=== PATIENT | female | born 1985 | race African-American/Black ===

== ENCOUNTER 2017-08-06 16:34 | Emergency (ER) | payer MEDICAID ==
[~2017-08-06] VITALS: Ht 157.5 cm; Wt 93.0 kg
[2017-08-06] MEDS ORDERED: ATIVAN0.5 MG ORAL (17:16)
[2017-08-06] MEDS ORDERED: IBUPROFEN600 MG ORAL (17:16)
[2017-08-06 17:37] VITALS: BP 116/73
--- NOTE | 2017-08-06 22:33 | Emergency Room Report ---
History of Present Illness General Chief Complaint: Headache Source: Patient Present Illness HPI The patient is a 32-year-old female presenting for 3 days of headache and chest pain. She states that these symptoms have been continuous. Chest pain is an 8/ 10 dull ache to the left chest. Worse with movement. She denies any recent injury to the area or strenuous activity. She does admit to history of anxiety but is not taking any medications for it. She states that she has been feeling more anxious over the past week. She denies any other symptoms including shortness of breath, fever, chills, numbness or tingling Patient History Past Medical History: see triage record Pertinent Family History: none Last Menstrual Period: 08/05/17 Now: No Reviewed Nursing Documentation: PMH: Agreed, PSxH: Agreed Nursing Documentation-PMH Past Medical History: No History, Except For Hx Cardiac Problems: No - ANXIETY Review of Systems All Other Systems: negative except mentioned in HPI Physical Exam Vital Signs Date Time Temp Pulse Resp B/P (MAP) Pulse Ox O2 Delivery O2 Flow Rate FiO2 08/06/17 17:29 98.2 68 16 116/73 99 Room Air Sp02 EP Interpretation: reviewed, normal General Appearance: no apparent distress, alert, GCS 15, non-toxic Head: normocephalic, atraumatic Eyes: bilateral eye normal inspection, bilateral eye PERRL ENT: hearing grossly normal, normal pharynx, no angioedema, normal voice Neck: full range of motion, supple/symm/no masses Respiratory: lungs clear, normal breath sounds, speaking full sentences Cardiovascular #1: regular rate, rhythm, no edema Musculoskeletal: back normal, gait/station normal, normal range of motion, non- tender, tender - L chest Neurologic: alert, oriented x3, responsive, motor strength/tone normal, sensory intact, speech normal Psychiatric: judgement/insight normal, memory normal, mood/affect normal, no suicidal/homicidal ideation Skin: normal color, no rash, warm/dry, well hydrated Medical Decision Making PA Attestation Dr. Felipe is my supervising physician. Patient management was discussed with my supervising physician Diagnostic Impression: Primary Impression: Anxiety Additional Impression: Chest pain Qualified Codes: R07.9 - Chest pain, unspecified ER Course The patient is a 32-year-old female presenting for 3 days of headache and chest pain. Differential diagnosis include but not limited to ACS, muscle strain, anxiety, PE,CHF, pneumonia, gastritis Physical exam: No apparent distress HEENT exam is unremarkable RRR Lungs CTA bilat There is tenderness to palpation over the left chest EKG unremarkable The patient will be discharged home with prescription for Motrin And a short- term prescription for Ativan. She will followup with her primary doctor. ER precautions are given EKG Diagnostic Results EP Interpretation: NSR. No acute findings Rate: normal - 81 Rhythm: NSR ST Segments: no acute changes ASA given to the pt in ED: No PA Scribe Text EKG was reviewed and read with my supervising physician. No acute ST segment changes are seen. Normal rate and rhythm. No acute changes. Last Vital Signs Date Time Temp Pulse Resp B/P (MAP) Pulse Ox O2 Delivery O2 Flow Rate FiO2 08/06/17 17:37 98.2 16 116/73 99 Room Air 08/06/17 17:30 79 Status: improved Disposition: HOME, SELF-CARE Condition: Improved Scripts Lorazepam* (ATIVAN*) 0.5 Mg Tablet 0.5 MG ORAL THREE TIMES A DAY, #10 TAB Prov: CINTIA [email or web address] 08/06/17 Ibuprofen* (MOTRIN*) 600 Mg Tablet 600 MG ORAL Q8H Y for For Pain, #30 TAB 0 Refills Prov: CINTIA [email or web address] 08/06/17 Referrals: NOT CHOSEN IPA/MD,REFERRING (PCP) Patient Instructions: Nonspecific Chest Pain, [id number], Panic Attacks Additional Instructions: I discussed my findings with the patient. All questions and concerns have been answered. Treatment and medication compliance have been addressed. I advised the patient that they need to follow up with PMD in 3-5 days. Return to ED if symptoms worsen, new symptoms arise, or if needed for any reason. Patient verbalized understanding of discharge instructions. CINTIA MEJIA Aug 06, 2017 22:33
--- NOTE | 2017-08-15 16:04 | Cardiology Report ---
APPROVED REPORT EKG Measurement Heart [id number] Normal sinus rhythm Nonspecific T wave abnormality Abnormal ECG
== END 2017-08-06 17:35 | disposition home or self-care (01) ==
LOC: EMR 17:26
DX: F41.9 Anxiety disorder, unspecified (principal); R07.9 Chest pain, unspecified
CPT/HCPCS: 93005; 99283